=== PATIENT | female | born 1990 | race Two or more races ===

== ENCOUNTER 2021-08-27 00:40 | Inpatient (IN) | payer OTHER ==
[~2021-08-27] VITALS: Ht 167.6 cm; Wt 68.5 kg
[2021-08-27] MEDS ORDERED: PRENATAL CAPLE1 EAC1 PO (01:00)
== END 2021-08-28 13:33 | disposition home or self-care (01) | DRG 833 ==
LOC: OBS/DEL 00:40 → LDR 11:04
PROVIDERS: ADMIT Specialist; ATTEND Specialist
PROC: 4A1HXCZ Monitoring of Products of Conception, Cardiac Rate, External Approach (ICD-10-PCS; principal; 2021-08-27)
PROC: BY4CZZZ Ultrasonography of Second Trimester, Single Fetus (ICD-10-PCS; 2021-08-27)
DX: O60.02 Preterm labor without delivery, second trimester (principal); O26.842 Uterine size-date discrepancy, second trimester; O26.892 Other specified pregnancy related conditions, second trimester; R10.2 Pelvic and perineal pain; O34.12 Maternal care for benign tumor of corpus uteri, second trimester; D25.9 Leiomyoma of uterus, unspecified; O62.2 Other uterine inertia; Z3A.23 23 weeks gestation of pregnancy; Z20.822 Contact with and (suspected) exposure to COVID-19

== ENCOUNTER 2021-11-14 08:25 | Outpatient (CLI) | payer OTHER ==
[~2021-11-14 08:25] MED LIST: PRENATAL CAPLE1 EAC1 PO
== END 2021-11-14 20:53 | disposition home or self-care (01) ==
LOC: OBS/DEL 08:25
PROVIDERS: ATTEND Specialist
DX: O36.8130 Decreased fetal movements, third trimester, not applicable or unspecified (principal); Z3A.34 34 weeks gestation of pregnancy; Z88.6 Allergy status to analgesic agent

== ENCOUNTER 2021-12-16 05:23 | Inpatient (IN) | payer OTHER ==
[~2021-12-16] VITALS: Ht 167.6 cm; Wt 3.2 kg
[2021-12-19] MEDS ORDERED: ACETAMINOPHEN500 M1 PO ×2 (07:43)
[2021-12-19] MEDS ORDERED: COLACE100 MG PO ×2 (07:44)
[2021-12-19] MEDS ORDERED: SIMETHICONE80 MG PO ×2 (07:44)
== END 2021-12-19 11:38 | disposition home or self-care (01) | DRG 788 ==
LOC: LDR 05:23 → OB/GYN 05:23
PROVIDERS: ADMIT Specialist; ATTEND Specialist
PROC: 4A1HXCZ Monitoring of Products of Conception, Cardiac Rate, External Approach (ICD-10-PCS; 2021-12-16)
PROC: 10D00Z1 Extraction of Products of Conception, Low, Open Approach (ICD-10-PCS; principal; 2021-12-16 20:00)
DX: O62.1 Secondary uterine inertia (principal); O24.410 Gestational diabetes mellitus in pregnancy, diet controlled; Z3A.39 39 weeks gestation of pregnancy; Z37.0 Single live birth; O34.13 Maternal care for benign tumor of corpus uteri, third trimester; D25.9 Leiomyoma of uterus, unspecified; Z20.822 Contact with and (suspected) exposure to COVID-19

== ENCOUNTER 2024-03-28 08:43 | Emergency (ER) | payer OTHER ==
[~2024-03-28] VITALS: Ht 167.6 cm; Wt 72.6 kg
[~2024-03-28 08:43] MED LIST changes: +ACETAMINOPHEN500 M1 PO; +COLACE100 MG PO; +SIMETHICONE80 MG PO
[2024-03-28] MEDS ORDERED: METHYLPREDNISOLONE SOD SUCC 125 MG VIAL IM STA (10:34)
[2024-03-28] MEDS ORDERED: METHYLPREDNISOLONE SOD SUCC 125 MG VIAL ONE (10:44)
== END 2024-03-28 11:13 | disposition home or self-care (01) ==
LOC: ER 08:44
DX: L25.3 Unspecified contact dermatitis due to other chemical products (principal); Z88.6 Allergy status to analgesic agent

== ENCOUNTER → 2025-07-11 10:32 | Outpatient (CLI) | payer OTHER | END | disposition home or self-care (01) | LOC: PRENATAL 10:32 | PROVIDERS: ATTEND Obstetrics & Gynecology Maternal & Fetal Medicine | DX: O44.02 Complete placenta previa NOS or without hemorrhage, second trimester (principal); O34.219 Maternal care for unspecified type scar from previous cesarean delivery; O34.12 Maternal care for benign tumor of corpus uteri, second trimester; Z3A.21 21 weeks gestation of pregnancy ==